=== PATIENT | female | born 1955 | race Caucasian/White ===

== ENCOUNTER 2016-07-06 10:26 | Emergency (ER) | payer MEDICARE, OTHER ==
[~2016-07-06] VITALS: Ht 160 cm; Wt 89.9 kg
[2016-07-06] MEDS ORDERED: KEPP250T5 PO (11:00)
[2016-07-06] MEDS ORDERED: CARB20TA PO (11:00)
[2016-07-06] MEDS ORDERED: GABA-283 PO (11:00)
[2016-07-06 11:13] LABS: BASO % 0.2 % (0.0-1.0); EOS # 0.2 K/mm3 (0.0-0.50); EOS % 2.1 % (0.0-3.0); LARGE UNSTAINED CELL # 0.1 K/mm3 (0.0-0.4); LARGE UNSTAINED CELL % 1.8 % (0.0-4.0); LYMPH # 1.3 K/mm3 (1.5-4.5); LYMPH % 18.5 % (24.0-44.0); MEAN CORPUSCULAR HEMOGLOBIN 28.9 pg (27.0-33.0); MEAN CORPUSCULAR HGB CONC 33.3 g/dl (32.0-36.5); MONO # 0.3 K/mm3 (0.0-0.8); MONO % 4.7 % (0.0-5.0); NEUTROPHILS # 5.1 K/mm3 (1.8-7.7); NEUTROPHILS % 72.6 % (36.0-66.0); PLATELET COUNT, AUTOMATED 232 k/mm3 (150-450); RED CELL DISTRIBUTION WIDTH 13.7 % (11.5-14.5)
[2016-07-06] MEDS ORDERED: ALTEPLASE 100MG INJ (J2997) IV ONE (11:15)
[2016-07-06 11:17] LABS: INR 1.01
[2016-07-06] MEDS: ALTEPLASE RECOMBINANT IV ONE (11:28)
[2016-07-06] MEDS: DILUENT IV ONE (11:28)
[2016-07-06 11:42] LABS: ANION GAP 5 MEQ/L (8-16); BLOOD UREA NITROGEN 18 MG/DL (7-18); CALCIUM LEVEL 9.1 MG/DL (8.8-10.2); CARBON DIOXIDE LEVEL 27 MEQ/L (21-32); CHLORIDE LEVEL 108 MEQ/L (98-107); GLOMERULAR FILTRATION RATE > 60.0 (>45); GLUCOSE, FASTING 99 MG/DL (80-110); POTASSIUM SERUM 4.1 MEQ/L (3.5-5.1); SODIUM LEVEL 140 MEQ/L (136-145)
[2016-07-06 11:44] VITALS: BP 154/100
[2016-07-06 11:44] LABS: CARBAMAZEPINE (TEGRETOL) LEVEL 12.1 UG/ML (4.0-10.0)
--- NOTE | 2016-07-06 12:05 | REP ---
CT BRAIN WITHOUT CONTRAST: 07/06/2016. Clinical history: CVA. No comparison study. Findings: Axial soft-tissue and bone windows for each slice level were provided. There is a left frontal bone philly hole with ventriculostomy catheter into the frontal horn of the left lateral ventricle abutting that midline. There is no ventriculomegaly with symmetric normal size lateral ventricles. Third and fourth ventricles unremarkable. There is no atrophy, hemorrhage, mass or mass effect. I see no vascular territory infarct, bleed or extra-axial fluid collection. The terrazas-white junction differentiation well maintained. Cortical stripe preserved. The brainstem intact. Cerebellum with no significant finding. No posterior fossa hemorrhage. Basal cisterns intact. The mastoids and sinuses are clear. Skull base and calvarium are without fracture or focal lesion. Prior right craniectomy over the right posterior temporo-occipital region. Impression: 1. Status post left frontal ventriculostomy drain with tip in the frontal horn of the left lateral ventricle abutting the midline. No ventriculomegaly, atrophy or mass. 2. No intra or extra-axial hemorrhage, acute infarct or edema. 3. No white matter tract abnormality and the skull base and calvarium are without focal lesion. 4. Status post craniectomy right posterior temporal occipital region. Nothing acute there. Signed by Leonard Hobbs MD 07/06/2016 03:02 P
--- NOTE | 2016-07-06 13:09 | REP ---
CHEST, SINGLE VIEW: Single view of the chest is performed. There are no prior studies. There is cardiomegaly. Mediastinal silhouette appears magnified. There is pulmonary venous hypertension. No infiltrates are seen. IMPRESSION: Cardiomegaly and pulmonary venous hypertension without evidence of acute infiltrate. Signed by Jordi Webster MD 07/06/2016 03:28 P
--- NOTE | 2016-07-08 08:59 | ECGEPIP ---
Stationary ECG Study [facility] [place] - ED Test Date: 2016-07-06 Pat Name: ZORAIDA JAVIER Department: Room: - Gender: F Temporary Staff Accountant: subhash : [id number] Requested By: Alba Bhandari Order Number: [id number] Reading MD: Alba Bhandari Measurements Intervals [place] Rate: 69 P: 29 MT: 158 QRS: 13 QRSD: 85 T: 7 QT: 390 QTc: 418 Interpretive Statements SINUS RHYTHM NO PRIOR Electronically Signed On 07-08-2016 8:59:09 EDT by Alba Bhandari
== END 2016-07-06 11:45 | disposition short-term general hospital (02) ==
LOC: EDBD 10:26 → M ED 11:30
DX: G46.3 Brain stem stroke syndrome (principal); R56.9 Unspecified convulsions; G43.909 Migraine, unspecified, not intractable, without status migrainosus; G50.0 Trigeminal neuralgia; Z79.899 Other long term (current) drug therapy; Z88.5 Allergy status to narcotic agent
CPT/HCPCS: 70450; 71010; 80048; 80156; 82550; 82553; 84484; 85025; 85610; 85730; 86850; 86900; 86901; 93005; 93041; 94760; 96374; 99285; J2997